=== PATIENT | female | born 1980 | race American Indian/Alaskan Native ===

== ENCOUNTER 2018-01-23 10:51 | Emergency (ER) | payer OTHER ==
[2018-01-23 11:27] VITALS: RESP 18; TEMP 98.1
--- NOTE | 2018-01-23 12:23 | ED PDOC ---
Arrival/HPI - General Chief Complaint: Upper Extremity Problem/Injury Time Seen by Provider: 01/23/18 12:19 Historian: Patient - History of Present Illness Narrative History of Present Illness (Text): 01/23/18 12:17 A 37 year old female, with no significant past medical history, presents to the emergency department complaining of left wrist pain. Patient reports during barbeque libertarian she was playing with her little sister and accidentally hit hand onto table. Afterwards during the evening, patient woke up to pain, described as strained muscle sensation, to the same area where she hit her hand Patient denies any other complaints. PMD: Dr. Tanya Roberts Time/Duration: Other (last night) Symptom Onset: Sudden Symptom Course: Unchanged Past Medical History - Provider Review Nursing Documentation Reviewed: Yes - Infectious Disease Hx of Infectious Diseases: None - Reproductive Menopause: No - Genitourinary/Gynecological Hx Urinary Tract Infection: No - Psychiatric Hx Substance Use: No - Anesthesia Hx Anesthesia: No Family/Social History - Physician Review Nursing Documentation Reviewed: Yes Family/Social History: No Known Family HX Smoking Status: Unknown If Ever Smoked Hx Alcohol Use: No Hx Substance Use: No Allergies/Home Meds Allergies/Adverse Reactions: Allergies No Known Allergies Allergy (Verified 01/23/18 11:59) Review of Systems - Physician Review All systems were reviewed & negative as marked: Yes - Review of Systems Musculoskeletal: Other (left wrist pain) Neurological: absent: Other (no numbness) Physical Exam - Physical Exam Narrative Physical Exam (Text): Gen: VS reviewed, alert, well developed, well nourished, nontoxic, mild distress. ENT: normal pharynx. Eye: EOMI, PERRL. Neck: no JVD, supple, no adenopathy. CV: regular rate, regular rhythm, no rubs, no murmur, no gallops, S1, S2, pulses equal and strong. Pulm: no distress, clear to auscultation, no wheeze, no rhonchi, breath sounds equal, no rales. Abd: soft, nontender, no guarding, no rebound, no rigidity, normal bowel sounds. Ext: no edema. Left distal wrist tenderness and pain with extention against resistance, no bony tenderness. Skin: good color, no rash, no cyanosis. Psych: responds appropriately to questions, normal affect. Neuro: oriented x 3, CN2-12 intact grossly, motor intact, sensation intact. Vital Signs Reviewed: Yes Vital Signs Temp Pulse Resp BP Pulse Ox 01/23/18 13:57 98.1 F 82 18 124/80 98 01/23/18 13:53 98.1 F 82 18 124/80 98 01/23/18 11:54 98.1 F 76 18 126/88 97 01/23/18 11:27 98.1 F 76 18 126/88 97 Temperature: Afebrile Blood Pressure: Normal Pulse: Regular Respiratory Rate: Normal Appearance: Positive for: Well-Appearing Pain Distress: None Mental Status: Positive for: Alert and Oriented X 3 Medical Decision Making ED Course and Treatment: 01/23/18 12:20 Impression: 37 year old female with left wrist pain. Physical exam shows tenderness to left distal wrist and pain with extention against resistance, no bony tenderness. Differential Diagnosis included but are not limited to: Sprain vs. Fracture Plan: -- Left Wrist X-Ray -- Urine Test -- Reassess and disposition Progress Notes: 01/23/2018 13:00 Left Wrist X-Ray IMPRESSION: No acute fracture or dislocation. Dictator: Jumana Golden MD 01/23/18 13:37 patient was seen for left forearm pain, questoinable trauma, pain reprodible with active resistance, possible tendon strain, ice, nasaids, refer to ortho - RAD Interpretation Radiology Orders: 01/23/18 12:20 WRIST, LEFT 3 VIEWS [RAD] Stat - Scribe Statement The provider has reviewed the documentation as recorded by the Anujibhyun Cancino Provider Scribe Attestation: All medical record entries made by the Scribe were at my direction and personally dictated by me. I have reviewed the chart and agree that the record accurately reflects my personal performance of the history, physical exam, medical decision making, and the department course for this patient. I have also personally directed, reviewed, and agree with the discharge instructions and disposition. Disposition/Present on Arrival - Present on Arrival Any Indicators Present on Arrival: No History of DVT/PE: No History of Uncontrolled Diabetes: No Urinary Catheter: No History of Decub. Ulcer: No History Surgical Site Infection Following: None - Disposition Have Diagnosis and Disposition been Completed?: Yes Diagnosis: Forearm strain Disposition: HOME/ ROUTINE Disposition Time: 18:09 Condition: GOOD Discharge Instructions (ExitCare): Muscle Strain Print Language: [place] Additional Instructions: follow up with an orthopedic surgeon if the pain persists beyond one week. Referrals: Romeo Alexander III, MD [Medical Doctor] - Follow up with primary Tanya Roberts MD [Primary Care Provider] - Follow up with primary Forms: [facility] ([place]i)
--- NOTE | 2018-01-23 13:02 | RAD ---
PROCEDURE: Left Wrist Radiographs. HISTORY: Pain COMPARISON: None. FINDINGS: BONES: Bone alignment and mineralization are normal. There is no acute displaced fracture or bone destruction. JOINTS: Normal. No dislocation. SOFT TISSUES: Normal. OTHER FINDINGS: None. IMPRESSION: No acute fracture or dislocation.
[2018-01-23 13:57] VITALS: BP 124/80; PULSE 82; O2SAT 98
== END 2018-01-23 13:57 | disposition home or self-care (01) ==
LOC: ED 10:51 → MERGE 10:51 → ED 13:57
DX: S56.912A Strain of unspecified muscles, fascia and tendons at forearm level, left arm, initial encounter (principal); W22.03XA Walked into furniture, initial encounter

== ENCOUNTER 2018-12-16 23:13 | Observation (INO) | payer OTHER ==
--- NOTE | 2018-12-17 01:22 | ED PDOC ---
Arrival/HPI - General Chief Complaint: Chest Pain Time Seen by Provider: 12/17/18 00:54 Historian: Patient - History of Present Illness Narrative History of Present Illness (Text): 12/17/18 01:13 38 year old female, whose past medical history includes diabetes and hypertension, presents to the emergency department with intermittent chest tightness. Patient informs pain would at times radiate down left arm. Patient informs symptoms have been intermittent throughout the day. Patient denies any associated shortness of breath, cough, fever, or chills. Patient also denies any abdominal pain, nausea, vomiting, diarrhea, headache, dizziness, or any other complaint. PMD: Dr. Tanya Roberts Time/Duration: Prior to Arrival, 24 hours Symptom Onset: Gradual Symptom Course: Unchanged, Intermittent Quality: Tightness Activities at Onset: Light Context: Home Past Medical History - Provider Review Nursing Documentation Reviewed: Yes - Infectious Disease Hx of Infectious Diseases: None - Cardiac Hx Cardiac Disorders: Yes Hx Hypertension: Yes - Endocrine/Metabolic Hx Endocrine Disorders: Yes Other/Comment: Gestational DM - Gastrointestinal Hx Gastrointestinal Disorders: Yes Hx Constipation: Yes - Genitourinary/Gynecological Hx Urinary Tract Infection: No - Psychiatric Hx Substance Use: No - Surgical History Hx Section: Yes - Anesthesia Hx Anesthesia: Yes Family/Social History - Physician Review Nursing Documentation Reviewed: Yes Family/Social History: No Known Family HX Smoking Status: Never Smoked Hx Alcohol Use: Yes Frequency of alcohol use: Socially Hx Substance Use: No Allergies/Home Meds Allergies/Adverse Reactions: Allergies No Known Allergies Allergy (Verified 12/16/18 23:50) Home Medications: Home Meds Medication Instructions Recorded Confirmed Lisinopril [Zestril] 5 mg PO DAILY 12/16/18 12/16/18 metFORMIN [glucOPHAGE] 500 mg PO BID 12/16/18 12/16/18 Review of Systems - Physician Review All systems were reviewed & negative as marked: Yes - Review of Systems Constitutional: absent: Fevers, Night Sweats Respiratory: absent: SOB, Cough Cardiovascular: Chest Pain Gastrointestinal: absent: Abdominal Pain, Diarrhea, Nausea, Vomiting Neurological: absent: Headache, Dizziness Physical Exam Vital Signs Reviewed: Yes Vital Signs Temp Pulse Resp BP Pulse Ox 12/16/18 23:46 98.2 F 63 18 138/97 H 98 Temperature: Afebrile Blood Pressure: Hypertensive Pulse: Regular Respiratory Rate: Normal Appearance: Positive for: Well-Appearing, Non-Toxic, Comfortable Pain Distress: None Mental Status: Positive for: Alert and Oriented X 3 - Systems Exam Head: Present: Atraumatic, Normocephalic Pupils: Present: PERRL Extroacular Muscles: Present: EOMI Conjunctiva: Present: Normal Mouth: Present: Moist Mucous Membranes Neck: Present: Normal Range of Motion Respiratory/Chest: Present: Clear to Auscultation, Good Air Exchange. No: Respiratory Distress, Accessory Muscle Use Cardiovascular: Present: Regular Rate and Rhythm, Normal S1, S2. No: Murmurs Abdomen: No: Tenderness, Distention, Peritoneal Signs Back: Present: Normal Inspection Upper Extremity: Present: Normal Inspection. No: Cyanosis, Edema Lower Extremity: Present: Normal Inspection. No: Edema Neurological: Present: GCS=15, CN II-XII Intact, Speech Normal Skin: Present: Warm, Dry, Normal Color. No: Rashes Psychiatric: Present: Alert, Oriented x 3, Normal Insight, Normal Concentration Medical Decision Making ED Course and Treatment: 12/17/18 01:24 Impression: 38 year female presents with chest pain. Plan: -- Cardiac Iso, CMP -- CBC, Platelets -- CHest X-ray -- EKG -- Reassess and disposition Prior Visits: Notes and results from previous visits were reviewed. Progress Notes: EKG reviewed by me, shows: Sinus bradycardia @ 59bpm 1st degree av block T-wave changes anteriorly 12/17/18 03:35 Chest X-ray reviewed by me, shows: No acute process 12/17/18 04:48 Spoke with medical claims specialist and house doctor, Dr Andrews, who accepts to the hospitalist service. - RAD Interpretation Radiology Orders: 12/17/18 01:02 CHEST PORTABLE [RAD] Stat - Scribe Statement The provider has reviewed the documentation as recorded by the Scribe Primo Smith Provider Scribe Attestation: All medical record entries made by the Scribe were at my direction and personal ly dictated by me. I have reviewed the chart and agree that the record accurately reflects my personal performance of the history, physical exam, medical decision making, and the department course for this patient. I have also personally directed, reviewed, and agree with the discharge instructions and disposition. Disposition/Present on Arrival - Present on Arrival Any Indicators Present on Arrival: No History of DVT/PE: No History of Uncontrolled Diabetes: No Urinary Catheter: No History of Decub. Ulcer: No History Surgical Site Infection Following: None - Disposition Have Diagnosis and Disposition been Completed?: Yes Diagnosis: Chest pain Disposition: HOSPITALIZED Disposition Time: 04:19 Patient Problems: Current Active Problems Problem Status Onset Chest pain Acute Condition: STABLE
[2018-12-17 01:38] LABS: MEAN CELL VOLUME 86.4 fl (80.0-105.0); MEAN CORPUSCULAR HEMOGLOBIN 29.2 pg (25.0-35.0); MEAN CORPUSCULAR HGB CONC 33.8 g/dl (31.0-37.0); MEAN PLATELET VOLUME 9.5 fl (7.0-11.0); RBC 4.11 10^6/uL (3.5-6.1); RED CELL DISTRIBUTION WIDTH 12.5 % (11.5-14.5)
[2018-12-17 01:47] LABS: ALB/GLOB RATIO 1.4 (1.1-1.8); ALBUMIN 4.4 g/dL (3.0-4.8); BLOOD UREA NITROGEN 12 mg/dL (7-21); CALCIUM 9.1 mg/dL (8.4-10.5); GFR NON-AFRICAN AMERICAN > 60
[2018-12-17 01:49] LABS: ALT/SGPT 26 U/L (7-56); AST/SGOT 24 U/L (14-36)
[2018-12-17 01:53] LABS: INR 0.94; PARTIAL THROMBOPLASTIN TIME 29.8 Seconds (26.9-38.3); PROTHROMBIN TIME 10.4 SECONDS (9.4-12.5)
[2018-12-17 01:59] LABS: TROPONIN I < 0.01 ng/mL
--- NOTE | 2018-12-17 04:27 | CP.PCM.HP ---
<Manoj Vann - Last Filed: 12/17/18 06:49> History of Present Illness - History of Present Illness History of Present Illness: Manoj Vann, PGY1 H&P for Dr. Andrews cc: "cp" Patient is a 38 year old female, whose past medical history includes diabetes and hypertension, presents to the emergency department with intermittent chest tightness. Patient says pain radiates down left arm. Chest pain started at rest while she was eating. She also had associated diaphoresis and some shortness of breath. She had a similar episode to this one week ago but did not go to the hospital. She denies sick contacts, recent travel. She denies cough, fever, chills, abdominal pain, n/v/d, headache, dizziness. She has no prior admissions to [facility]. She has only presented to the ED previously for various complaints such as wrist pain and abdominal pain. PMD: Dr. Tanya Roberts PMHx: DM, HTN PSHx: Meds: metformin 500 BID, Lisinopril 5mg daily Allergies: NKDA SocialHx: social drinker. Former smoker (1/2 PPD for x2 years). Denies illicit drug use. FamHx: grandmother had UT. Sister had breast cancer. Strong family history of DM and HTN. Present on Admission - Present on Admission Any Indicators Present on Admission: No Review of Systems - Review of Systems All systems: reviewed and no additional remarkable complaints except (as per HPI) Past Patient History - Infectious Disease Hx of Infectious Diseases: None - Past Social History Smoking Status: Never Smoked - CARDIAC Hx Cardiac Disorders: Yes Hx Hypertension: Yes - ENDOCRINE/METABOLIC Hx Endocrine Disorders: Yes Other/Comment: Gestational DM - GASTROINTESTINAL Hx Gastrointestinal Disorders: Yes Hx Constipation: Yes - GENITOURINARY/GYNECOLOGICAL Hx Urinary Tract Infection: No - PSYCHIATRIC Hx Substance Use: No - SURGICAL HISTORY Hx Section: Yes - ANESTHESIA Hx Anesthesia: Yes Meds Allergies/Adverse Reactions: Allergies Allergy/AdvReac Type Severity Reaction Status Date / Time No Known Allergies Allergy Verified 12/16/18 23:50 Physical Exam - Constitutional Appears: No Acute Distress - Head Exam Head Exam: ATRAUMATIC, NORMAL INSPECTION, NORMOCEPHALIC - Eye Exam Eye Exam: EOMI, Normal appearance - ENT Exam ENT Exam: Mucous Membranes Moist - Neck Exam Neck exam: Positive for: Normal Inspection - Respiratory Exam Respiratory Exam: Clear to Auscultation Bilateral. absent: Chest Wall Tenderness, Rales, Rhonchi, Wheezes - Cardiovascular Exam Cardiovascular Exam: RRR, +S1, +S2 - GI/Abdominal Exam GI & Abdominal Exam: Normal Bowel Sounds, Soft. absent: Firm, Guarding, Rebound, Rigid, Tenderness - Extremities Exam Extremities exam: Positive for: normal capillary refill, normal inspection, pedal pulses present - Back Exam Back exam: NORMAL INSPECTION - Neurological Exam Neurological exam: Alert, CN II-XII Intact, Oriented x3 - Psychiatric Exam Psychiatric exam: Normal Affect, Normal Mood - Skin Skin Exam: Dry, Intact, Normal Color, Warm Results - Vital Signs Recent Vital Signs: Last Vital Signs Temp 98.2 F 12/16/18 23:46 Pulse 60 12/17/18 01:48 Resp 15 12/17/18 01:48 BP 133/87 12/17/18 01:48 Pulse Ox 98 12/17/18 01:48 - Labs Result Diagrams: 12/17/18 01:27 12/17/18 01:27 Labs: Laboratory Results - last 24 hr 12/17/18 12/17/18 12/17/18 01:27 01:27 01:27 WBC 6.0 RBC 4.11 Hgb 12.0 Hct 35.5 L MCV 86.4 MCH 29.2 MCHC 33.8 RDW 12.5 Plt Count 276 MPV 9.5 PT 10.4 INR 0.94 APTT 29.8 Sodium 136 Potassium 4.0 Chloride 104 Carbon Dioxide 22 Anion Gap 15 BUN 12 Creatinine 0.7 Est GFR ( Amer) > 60 Est GFR (Non-Af Amer) > 60 Random Glucose 132 H Calcium 9.1 Total Bilirubin 0.3 AST 24 ALT 26 Alkaline Phosphatase 66 Lactate Dehydrogenase 427 Total Creatine Kinase 99 Troponin I < 0.01 Total Protein 7.6 Albumin 4.4 Globulin 3.2 Albumin/Globulin Ratio 1.4 Assessment & Plan - Assessment and Plan (Free Text) Assessment: Patient is a 38 year old female, whose past medical history includes diabetes and hypertension, presents to the emergency department with intermittent chest tightness. Plan: Chest Pain - r/o ACS - initial trop neg x1; repeat serial trops - TSH - Hgb A1c - Lipid Panel - ASA 81mg PO daily - CXR: no active disease - Cardiology consulted (Dr. Cantu) - HHD - EKG: sinus bradycardia, HR 59, 1st degree AV block, T wave inversions V1-V6. DM - ISS - Accuchecks HTN - resume home med Lisinopril ppx: - scd Diet: HHD Dispo: Admit patient to tele. Pending Plate Worker Helper recommendations. Case was discussed and reviewed with Attending Physician, Dr. Andrews. <Shannan Andrews - Last Filed: 12/17/18 07:33> Results - Vital Signs Recent Vital Signs: Last Vital Signs Temp 98.2 F 12/16/18 23:46 Pulse 57 L 12/17/18 06:10 Resp 16 12/17/18 06:10 BP 140/99 H 12/17/18 06:10 Pulse Ox 98 12/17/18 06:10 - Labs Result Diagrams: 12/17/18 01:27 12/17/18 01:27 Labs: Laboratory Results - last 24 hr 12/17/18 12/17/18 12/17/18 01:27 01:27 01:27 WBC 6.0 RBC 4.11 Hgb 12.0 Hct 35.5 L MCV 86.4 MCH 29.2 MCHC 33.8 RDW 12.5 Plt Count 276 MPV 9.5 PT 10.4 INR 0.94 APTT 29.8 Sodium 136 Potassium 4.0 Chloride 104 Carbon Dioxide 22 Anion Gap 15 BUN 12 Creatinine 0.7 Est GFR ( Amer) > 60 Est GFR (Non-Af Amer) > 60 Random Glucose 132 H Calcium 9.1 Total Bilirubin 0.3 AST 24 ALT 26 Alkaline Phosphatase 66 Lactate Dehydrogenase 427 Total Creatine Kinase 99 Troponin I < 0.01 Total Protein 7.6 Albumin 4.4 Globulin 3.2 Albumin/Globulin Ratio 1.4 Attending/Attestation - Attestation I have personally seen and examined this patient.: Yes I have fully participated in the care of the patient.: Yes I have reviewed all pertinent clinical information: Yes Notes (Text): 12/17/18 07:31 Pt seen,case discussed with the resident. Agree with documentation,assessment and plan of treatment.
[2018-12-17] MEDS ORDERED: Dextrose 50% SYRINGE Inj (50 ml) IV PRN (06:10)
--- NOTE | 2018-12-17 07:53 | RAD ---
Date of service: 12/17/2018 HISTORY: chest pain COMPARISON: No prior. TECHNIQUE: 1 view obtained. FINDINGS: LUNGS: No active pulmonary disease. PLEURA: No significant pleural effusion identified, no pneumothorax apparent. CARDIOVASCULAR: No aortic atherosclerotic calcification present. Normal cardiac size. No pulmonary vascular congestion. OSSEOUS STRUCTURES: No significant abnormalities. VISUALIZED UPPER ABDOMEN: Normal. OTHER FINDINGS: None. IMPRESSION: No acute cardiopulmonary disease appreciated.
[2018-12-17] MEDS: Insulin Lispro (humaLOG) MEDIUM Coverage SC SCH ×3 (08:08→17:05)
[2018-12-17 08:39] LABS: HDL CHOLESTEROL 49 mg/dL (29-60)
[2018-12-17 08:50] LABS: LDL CHOLESTEROL 154 mg/dL (0-129)
[2018-12-17] MEDS ORDERED: Pneumococcal 23-Valent Vaccine IM ONE (11:00)
[2018-12-17 11:49] LABS: URINE BILIRUBIN NEGATIVE (NEGATIVE); URINE BLOOD NEGATIVE (NEGATIVE); URINE GLUCOSE (UA) NEGATIVE (NEGATIVE); URINE LEUKOCYTE ESTERASE NEGATIVE Leu/uL (NEGATIVE); URINE PROTEIN NEGATIVE mg/dL (<30 mg/dL); URINE UROBILINOGEN 0.2 E.U./dL (<1 E.U./dL)
[2018-12-17 11:53] LABS: URINE COLOR YELLOW (YELLOW)
[2018-12-17 11:54] LABS: URINE APPEARANCE CLEAR (CLEAR)
[2018-12-17 12:23] VITALS: BP 121/83; PULSE 58; RESP 20; TEMP 97.7
[2018-12-17 13:58] VITALS: O2SAT 98
--- NOTE | 2018-12-17 16:11 | CARD ---
APPROVED REPORT Date of service: 12/17/2018 EXAM: Two-dimensional and M-mode echocardiogram with Doppler and color Doppler. INDICATION LVFX 2D DIMENSIONS Left Atrium (2D)3.0 (1.6-4.0cm)IVSd1.1 (0.7-1.1cm) LVDd4.0 (3.9-5.9cm)PWd1.1 (0.7-1.1cm) LVDs2.4 (2.5-4.0cm)FS (%) 40.3 % LVEF (%)71.4 (>50%) M-Mode DIMENSIONS Aortic Root3.30 (2.2-3.7cm)Aortic Cusp Exc.2.10 (1.5-2.0cm) Aortic Valve AoV Peak Wpkaiylk080.0cm/Max Peak GR.7mmHg Mitral Valve MV E Nmmxzqhl39.4cm/sMV A Foibvkzn34.7cm/sE/A ratio1.5 TDI Lateral E' Peak V10.80cm/sMedial E' Peak V6.34cm/sE/Lateral E'7.3 E/Medial E'12.4 Pulmonary Valve PV Peak Ehjbgajk05.9cm/sPV Peak Grad.2mmHg Tricuspid Valve TR Peak Duodanlf507ha/sRAP [id number] Peak Gr.10mmHg [id number] LEFT VENTRICLE The left ventricle is normal size. There is normal left ventricular wall thickness. The left ventricular function is normal. The left ventricular ejection fraction is within the normal range. There is normal LV segmental wall motion. The left ventricular diastolic function is normal. RIGHT VENTRICLE The right ventricle is normal size. There is normal right ventricular wall thickness. The right ventricular systolic function is normal. ATRIA The left atrium size is normal. The right atrium size is normal. AORTIC VALVE The aortic valve is normal in structure. No aortic regurgitation is present. There is no aortic valvular stenosis. There is no aortic valvular vegetation. MITRAL VALVE The mitral valve is normal in structure. There is no mitral valve regurgitation noted. There is no mitral valve stenosis. There is no evidence of mitral valve prolapse. TRICUSPID VALVE The tricuspid valve is normal in structure. There is trace tricuspid regurgitation. PULMONIC VALVE The pulmonary valve is normal in structure. There is trace pulmonic valvular regurgitation. GREAT VESSELS The aortic root is normal in size. The IVC is normal in size and collapses >50% with inspiration. PERICARDIAL EFFUSION There is no pericardial effusion. <Conclusion> The left ventricle is normal size. There is normal left ventricular wall thickness. The left ventricular function is normal. The left ventricular ejection fraction is within the normal range. There is normal LV segmental wall motion. The left ventricular diastolic function is normal.
--- NOTE | 2018-12-17 16:45 | CARD ---
APPROVED REPORT Date of service: 12/17/2018 EKG Measurement Heart [id number] <Conclusion> Sinus bradycardia Juvinile T-wave changes Borderline ECG
--- NOTE | 2018-12-18 09:59 | CON ---
DATE OF CONSULTATION: 12/17/2018 CARDIOLOGY CONSULTATION HISTORY: The patient is a 38-year-old woman, who presents with atypical chest pain, which is increased with moving her arms. She suffers from diabetes and hypertension. 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 PAST MEDICAL HISTORY: The patient's past medical history is free of cardiac disease, but she is treated for hypertension, diabetes mellitus, and hyperlipidemia. SOCIAL HISTORY: The patient denies smoking. REVIEW OF SYSTEMS: Review of systems were all negative for cardiac symptomatology. PHYSICAL EXAMINATION: VITAL SIGNS: The blood pressure is 111/75, heart rate is in the 60s. NECK: Negative JVD. LUNGS: Without rales. CARDIAC: Heart rate S1, S2. EXTREMITIES: Without edema. LABORATORY DATA: EKG shows normal sinus rhythm with nonspecific ST-T changes. Troponins are negative x2. IMPRESSION: 1. Atypical chest pain. 2. No evidence for acute coronary artery syndrome. 3. Diabetes mellitus. 4. Hypertension. 5. Hypercholesterolemia. Echocardiogram reveals good LV function. PLAN: Given these findings, there is no evidence for acute coronary artery syndrome. The patient can be discharged. Given her cardiac risk factors, we will arrange for an outpatient stress test. Primo Cantu MD
--- NOTE | 2018-12-18 16:20 | CP.PCM.DIS ---
<Margarito Altman - Last Filed: 12/18/18 16:08> Provider - Provider Date of Admission: 12/17/18 04:19 Attending physician: Rula Mullins MD Primary care physician: Tanya Roberts MD Consults: 12/17/18 06:20 Physician Consult Routine Comment: Consulting Provider: Primo Cantu Consulting Physician: Priom Cantu Reason for Consult: cp; T wave inversions 12/17/18 10:37 Diabetic Education Referral Routine Comment: Physician Instructions: Reason For Exam: noncompliant with taking DM meds 12/17/18 10:46 Transition In Care/Readmission Reduction Routine Comment: Physician Instructions: Reason For Exam: protocol 12/17/18 11:00 Inpatient SIDEROGRAPHER Core Measures Referral Routine Comment: Physician Instructions: Reason For Exam: protocol Time Spent in preparation of Discharge (in minutes): 45 Hospital Course - Lab Results Lab Results: Most Recent Lab Values WBC 6.0 10^3/uL (4.5-11.0) 12/17/18 01:27 RBC 4.11 10^6/uL (3.5-6.1) 12/17/18 01:27 Hgb 12.0 g/dL (12.0-16.0) 12/17/18 01:27 Hct 35.5 % (36.0-48.0) L 12/17/18 01:27 MCV 86.4 fl (80.0-105.0) 12/17/18 01:27 MCH 29.2 pg (25.0-35.0) 12/17/18 01:27 MCHC 33.8 g/dl (31.0-37.0) 12/17/18 01:27 RDW 12.5 % (11.5-14.5) 12/17/18 01:27 Plt Count 276 10^3/uL (120.0-450.0) 12/17/18 01:27 MPV 9.5 fl (7.0-11.0) 12/17/18 01:27 PT 10.4 SECONDS (9.4-12.5) 12/17/18 01:27 INR 0.94 12/17/18 01:27 APTT 29.8 Seconds (26.9-38.3) 12/17/18 01:27 Sodium 136 mmol/L (132-148) 12/17/18 01:27 Potassium 4.0 mmol/L (3.6-5.0) 12/17/18 01:27 Chloride 104 mmol/L (98-107) 12/17/18 01:27 Carbon Dioxide 22 mmol/L (21-33) 12/17/18 01:27 Anion Gap 15 (10-20) 12/17/18 01:27 BUN 12 mg/dL (7-21) 12/17/18 01:27 Creatinine 0.7 mg/dl (0.7-1.2) 12/17/18 01:27 Est GFR ( Amer) > 60 12/17/18 01:27 Est GFR (Non-Af Amer) > 60 12/17/18 01:27 POC Glucose (mg/dL) 123 mg/dL (65-110) H 12/17/18 16:19 Random Glucose 132 mg/dL (70-110) H 12/17/18 01:27 Hemoglobin A1c 6.8 % (4.2-6.5) H 12/17/18 08:00 Calcium 9.1 mg/dL (8.4-10.5) 12/17/18 01:27 Total Bilirubin 0.3 mg/dL (0.2-1.3) 12/17/18 01:27 AST 24 U/L (14-36) 12/17/18 01:27 ALT 26 U/L (7-56) 12/17/18 01:27 Alkaline Phosphatase 66 U/L (38-126) 12/17/18 01:27 Lactate Dehydrogenase 427 U/L (333-699) 12/17/18 01:27 Total Creatine Kinase 99 U/L (35-230) 12/17/18 01:27 Troponin I < 0.01 ng/mL 12/17/18 11:50 Total Protein 7.6 g/dL (5.8-8.3) 12/17/18 01:27 Albumin 4.4 g/dL (3.0-4.8) 12/17/18 01:27 Globulin 3.2 gm/dL 12/17/18 01:27 Albumin/Globulin Ratio 1.4 (1.1-1.8) 12/17/18 01:27 Triglycerides 127 mg/dL (35-160) 12/17/18 08:00 Cholesterol 215 mg/dL (130-200) H 12/17/18 08:00 LDL Cholesterol Direct 154 mg/dL (0-129) H 12/17/18 08:00 HDL Cholesterol 49 mg/dL (29-60) 12/17/18 08:00 TSH 3rd Generation 4.38 mIU/mL (0.46-4.68) 12/17/18 08:00 Urine Color Yellow (YELLOW) 12/17/18 11:14 Urine Appearance Clear (CLEAR) 12/17/18 11:14 Urine pH 6.0 (4.7-8.0) 12/17/18 11:14 Ur Specific [place] 1.020 (1.005-1.035) 12/17/18 11:14 Urine Protein Negative mg/dL (<30 mg/dL) 12/17/18 11:14 Urine Glucose (UA) Negative mg/dL (NEGATIVE) 12/17/18 11:14 Urine Ketones Negative mg/dL (NEGATIVE) 12/17/18 11:14 Urine Blood Negative (NEGATIVE) 12/17/18 11:14 Urine Nitrate Negative (NEGATIVE) 12/17/18 11:14 Urine Bilirubin Negative (NEGATIVE) 12/17/18 11:14 Urine Urobilinogen 0.2 E.U./dL (<1 E.U./dL) 12/17/18 11:14 Ur Leukocyte Esterase Negative Glenn/uL (NEGATIVE) 12/17/18 11:14 Urine HCG, Qual Negative (NEGATIVE) 12/17/18 11:06 - Hospital Course Hospital Course: 38 year old female, whose past medical history includes HTN, DM2 presented to the emergency department with intermittent chest tightness. Admitted for chest Pain r/o ACS. trops neg x3, ASA 81mg PO daily. EKG showed sinus ayaka @59 bpm. CXR showed no active disease. Echo showed EF 71.4% with normal LV function/size. TSH, lipid panel normal. A1C 6.8 Patient has HTN home med Lisinopril resumed. Patient has DM, ISS-low accuchecks initiated. Patient was followed by cardiology. Patient was hemodynamically stable, asymptomatic, afebrile and clinically optimized for discharge today. Further discharge instructions as below. Discharge Exam - Head Exam Head Exam: ATRAUMATIC, NORMAL INSPECTION, NORMOCEPHALIC Discharge Plan - Discharge Medications Prescriptions: Aspirin [Ecotrin] 81 mg PO DAILY #30 tabec Atorvastatin [Lipitor] 20 mg PO DIN #30 tab - Follow Up Plan Condition: STABLE Disposition: HOME/ ROUTINE Instructions: Cardiac Stress Test, Heart Healthy Diet, Chest Pain (DC) Additional Instructions: Please follow up with your PMD Dr. Tanya Roberts within 3-5 days of discharge. Please follow up with Cardiology Dr. Cantu within 3-5 days of discharge : [phone] An appointment for an outpatient stress test has been made for you; If you do not receive instructions in regards to the stress test please be sure to call Dr. Cantu's office for further direction. Please start taking the following medications Aspirin 81mg Daily Lipitor 20mg w/ Dinner Please continue taking your home meds as previously prescribed If you experience chest pain, shortness of breath, palpitations, or any other concerning symptoms please call 911 immediately or go to the nearest emergency department immediately. Diet: Heart healthy diet; diabetic exchange menu Patient states she is up to date with regards to the flu vaccine and refuses the pneumococcal vaccine. Referrals: Tanya Roberts MD [Primary Care Provider] - Primo Cantu MD [Staff Provider] - <DalilaWalker sullivan - Last Filed: 12/18/18 17:24> Provider - Provider Date of Admission: 12/17/18 04:19 Attending physician: Rula Mullins MD Primary care physician: Tanya Roberts MD Consults: 12/17/18 06:20 Physician Consult Routine Comment: Consulting Provider: Primo Cantu Consulting Physician: Primo Cantu Reason for Consult: cp; T wave inversions 12/17/18 10:37 Diabetic Education Referral Routine Comment: Physician Instructions: Reason For Exam: noncompliant with taking DM meds 12/17/18 10:46 Transition In Care/Readmission Reduction Routine Comment: Physician Instructions: Reason For Exam: protocol 12/17/18 11:00 Inpatient SIDEROGRAPHER Core Measures Referral Routine Comment: Physician Instructions: Reason For Exam: protocol Hospital Course - Lab Results Lab Results: Most Recent Lab Values WBC 6.0 10^3/uL (4.5-11.0) 12/17/18 01:27 RBC 4.11 10^6/uL (3.5-6.1) 12/17/18 01:27 Hgb 12.0 g/dL (12.0-16.0) 12/17/18 01:27 Hct 35.5 % (36.0-48.0) L 12/17/18 01:27 MCV 86.4 fl (80.0-105.0) 12/17/18 01:27 MCH 29.2 pg (25.0-35.0) 12/17/18 01:27 MCHC 33.8 g/dl (31.0-37.0) 12/17/18 01:27 RDW 12.5 % (11.5-14.5) 12/17/18 01:27 Plt Count 276 10^3/uL (120.0-450.0) 12/17/18 01:27 MPV 9.5 fl (7.0-11.0) 12/17/18 01:27 PT 10.4 SECONDS (9.4-12.5) 12/17/18 01:27 INR 0.94 12/17/18 01:27 APTT 29.8 Seconds (26.9-38.3) 12/17/18 01:27 Sodium 136 mmol/L (132-148) 12/17/18 01:27 Potassium 4.0 mmol/L (3.6-5.0) 12/17/18 01:27 Chloride 104 mmol/L (98-107) 12/17/18 01:27 Carbon Dioxide 22 mmol/L (21-33) 12/17/18 01:27 Anion Gap 15 (10-20) 12/17/18 01:27 BUN 12 mg/dL (7-21) 12/17/18 01:27 Creatinine 0.7 mg/dl (0.7-1.2) 12/17/18 01:27 Est GFR ( Amer) > 60 12/17/18 01:27 Est GFR (Non-Af Amer) > 60 12/17/18 01:27 POC Glucose (mg/dL) 123 mg/dL (65-110) H 12/17/18 16:19 Random Glucose 132 mg/dL (70-110) H 12/17/18 01:27 Hemoglobin A1c 6.8 % (4.2-6.5) H 12/17/18 08:00 Calcium 9.1 mg/dL (8.4-10.5) 12/17/18 01:27 Total Bilirubin 0.3 mg/dL (0.2-1.3) 12/17/18 01:27 AST 24 U/L (14-36) 12/17/18 01:27 ALT 26 U/L (7-56) 12/17/18 01:27 Alkaline Phosphatase 66 U/L (38-126) 12/17/18 01:27 Lactate Dehydrogenase 427 U/L (333-699) 12/17/18 01:27 Total Creatine Kinase 99 U/L (35-230) 12/17/18 01:27 Troponin I < 0.01 ng/mL 12/17/18 11:50 Total Protein 7.6 g/dL (5.8-8.3) 12/17/18 01:27 Albumin 4.4 g/dL (3.0-4.8) 12/17/18 01:27 Globulin 3.2 gm/dL 12/17/18 01:27 Albumin/Globulin Ratio 1.4 (1.1-1.8) 12/17/18 01:27 Triglycerides 127 mg/dL (35-160) 12/17/18 08:00 Cholesterol 215 mg/dL (130-200) H 12/17/18 08:00 LDL Cholesterol Direct 154 mg/dL (0-129) H 12/17/18 08:00 HDL Cholesterol 49 mg/dL (29-60) 12/17/18 08:00 TSH 3rd Generation 4.38 mIU/mL (0.46-4.68) 12/17/18 08:00 Urine Color Yellow (YELLOW) 12/17/18 11:14 Urine Appearance Clear (CLEAR) 12/17/18 11:14 Urine pH 6.0 (4.7-8.0) 12/17/18 11:14 Ur Specific [place] 1.020 (1.005-1.035) 12/17/18 11:14 Urine Protein Negative mg/dL (<30 mg/dL) 12/17/18 11:14 Urine Glucose (UA) Negative mg/dL (NEGATIVE) 12/17/18 11:14 Urine Ketones Negative mg/dL (NEGATIVE) 12/17/18 11:14 Urine Blood Negative (NEGATIVE) 12/17/18 11:14 Urine Nitrate Negative (NEGATIVE) 12/17/18 11:14 Urine Bilirubin Negative (NEGATIVE) 12/17/18 11:14 Urine Urobilinogen 0.2 E.U./dL (<1 E.U./dL) 12/17/18 11:14 Ur Leukocyte Esterase Negative Glenn/uL (NEGATIVE) 12/17/18 11:14 Urine HCG, Qual Negative (NEGATIVE) 12/17/18 11:06 Attending/Attestation - Attestation I have personally seen and examined this patient.: Yes I have fully participated in the care of the patient.: Yes I have reviewed all pertinent clinical information, including history, physical exam and plan: Yes Notes (Text): 12/18/18 17:21 Attending note; Patient seen and examined with resident. Patient is alert and awake. Denies any chest pain now. Complaining of some exertional dyspnea. Denies any fevers, chills. Patient is a 38 year old female with past medical history includes HTN, DM2 presented to the emergency department with intermittent chest tightness. 1. Chest pain; EKG showed nonspecific changes. Cardiac enzymes x3 negative. Cardiology evaluation appreciated. Outpatient stress test arranged. 2. Diabetes; continue carbohydrate consistent diet. Continue metformin. 3. Hyperlipidemia; continue Lipitor. 4. Obesity; diet, exercise and weight reduction advised. Upon discharge the patient will follow up with PMD Dr. Drake. Follow-up with play leader Dr. Cantu for stress test on December 30.
== END 2018-12-17 19:06 | disposition home or self-care (01) ==
LOC: ED 23:13 → ERH 12-17 04:19 → 2RNO 12-17 11:12
PROVIDERS: ADMIT Internal Medicine; ATTEND Internal Medicine
DX: R07.89 Other chest pain (principal); E11.9 Type 2 diabetes mellitus without complications; E78.5 Hyperlipidemia, unspecified; I10 Essential (primary) hypertension; E66.9 Obesity, unspecified; E78.00 Pure hypercholesterolemia, unspecified; Z87.891 Personal history of nicotine dependence
CPT/HCPCS: 36415; 71045; 80053; 80061; 81003; 81025; 82550; 82948; 83036; 83615; 84443; 84484; 84703; 85027; 85610; 85730; 93005; 93306; 99284; G0378